=== PATIENT | male | born 1995 | race Native Hawaiian/Other Pacific Islander ===

== ENCOUNTER 2017-10-30 13:58 | Emergency (ER) | payer SELFPAY ==
[2017-10-30 14:27] VITALS: BP 122/77
--- NOTE | 2017-10-30 15:11 | Emergency Department Report ---
ED Abdominal Pain HPI - General Chief Complaint: Abdominal Pain Stated Complaint: ABD PAIN Time Seen by Provider: 10/30/17 15:09 Source: patient, family Mode of arrival: Ambulatory Limitations: No Limitations - History of Present Illness Initial Comments: This is a 22-year-old male here with his family member reports that he is having abdominal pain to the right upper quadrant and it hurts. He said the pain feels like spasm in his stomach and it is 10 out of 10 and comes and goes. Denies any back pain. Denies any urinary burning frequency or urgency. Denies any diarrhea or vomiting but reports some nausea. Patient denies eating any food that upset his stomach. He says that he went to a clinic and they did a strep test and told him that he has had strep but he was not having a sore throat and treated him with antibiotic. He said they told them not to eat any fatty food or fried foods. Patient last bowel movement was this morning and. He also reportedly told him that he was constipated and he was placed on laxative. Patient reports he has been drinking prune juice and prescription laxative that was given to him. He reports chills but denies any fever. Pain is exacerbated by touch but no alleviating factors. MD Complaint: abdominal pain Onset/Timin -: Gradual, week(s) Location: RUQ Radiation: none Migration to: no migration Severity: severe Quality: other (spasms) Consistency: intermittent Improves With: nothing Worsens With: other (palpation) Context: other (unsure) Associated Symptoms: nausea, chills. denies: vomiting, diarrhea, fever, constipation, dysuria, hematemesis, hematochezia, melena, hematuria, anorexia, syncope Treatments Prior to Arrival: other (laxative) - Related Data Home Medications Medication Instructions Recorded Confirmed Last Taken buPROPion [Wellbutrin] 75 mg PO 01/12/13 01/12/13 Unknown Previous Rx's Medication Instructions Recorded Last Taken Type Ibuprofen [Motrin] 400 mg PO TID PRN #20 tablet 01/12/13 Unknown Rx Penicillin Vk [Veetids TAB] 2 mg PO BID #40 tablet 02/03/13 Unknown Rx Ibuprofen [Motrin] 600 mg PO Q8H PRN #12 tablet 10/30/17 Unknown Rx Ondansetron [Zofran Odt] 4 mg PO Q6H PRN #20 tab.rapdis 10/30/17 Unknown Rx Allergies Allergy/AdvReac Type Severity Reaction Status Date / Time No Known Allergies Allergy Unverified 01/12/13 15:41 ED Review of Systems ROS: Stated complaint: ABD PAIN Other details as noted in HPI Constitutional: chills. denies: fever Eyes: vision change. denies: eye pain ENT: denies: ear pain, throat pain Respiratory: denies: cough, shortness of breath, wheezing Cardiovascular: denies: chest pain, palpitations Endocrine: no symptoms reported Gastrointestinal: denies: abdominal pain, nausea, diarrhea Genitourinary: denies: urgency, dysuria Musculoskeletal: denies: back pain, joint swelling, arthralgia Skin: denies: rash, lesions Neurological: denies: headache, weakness ED Past Medical Hx - Past Medical History Previous Medical History?: No - Surgical History Past Surgical History?: No - Family History Family history: no significant - Social History Smoking Status: Never Smoker Substance Use Type: None - Medications Home Medications: Home Medications Medication Instructions Recorded Confirmed Last Taken Type Ibuprofen [Motrin] 400 mg PO TID PRN #20 tablet 01/12/13 Unknown Rx buPROPion [Wellbutrin] 75 mg PO 01/12/13 01/12/13 Unknown History Penicillin Vk [Veetids TAB] 2 mg PO BID #40 tablet 02/03/13 Unknown Rx Ibuprofen [Motrin] 600 mg PO Q8H PRN #12 tablet 10/30/17 Unknown Rx Ondansetron [Zofran Odt] 4 mg PO Q6H PRN #20 tab.rapdis 10/30/17 Unknown Rx ED Physical Exam - General Limitations: No Limitations General appearance: alert, in no apparent distress - Head Head exam: Present: atraumatic, normocephalic, normal inspection - Eye Eye exam: Present: normal appearance, PERRL, EOMI Pupils: Present: normal accommodation - ENT ENT exam: Present: normal exam, normal orophraynx, mucous membranes moist - Neck Neck exam: Present: normal inspection, full ROM. Absent: tenderness, meningismus, lymphadenopathy - Respiratory Respiratory exam: Present: normal lung sounds bilaterally. Absent: respiratory distress, chest wall tenderness - Cardiovascular Cardiovascular Exam: Present: regular rate, normal rhythm, normal heart sounds. Absent: systolic murmur, diastolic murmur - GI/Abdominal GI/Abdominal exam: Present: soft, tenderness (right upper quadrant), guarding, normal bowel sounds. Absent: distended, rebound, rigid, organomegaly, mass, bruit, pulsatile mass, hernia - Extremities Exam Extremities exam: Present: normal inspection, full ROM, normal capillary refill , other (No cce. + 2 pulses in all extremities, no neurovascular compromise). Absent: tenderness, pedal edema, joint swelling, calf tenderness - Back Exam Back exam: Present: normal inspection, full ROM, other (ambulates without any difficulties). Absent: tenderness, CVA tenderness (R), CVA tenderness (L), muscle spasm, paraspinal tenderness, vertebral tenderness, rash noted - Neurological Exam Neurological exam: Present: alert, oriented X3, normal gait - Psychiatric Psychiatric exam: Present: normal affect, normal mood - Skin Skin exam: Present: warm, dry, intact, normal color. Absent: rash ED Course Vital Signs 10/30/17 10/30/17 14:23 16:19 Temperature 99.1 F Pulse Rate 62 Respiratory 16 18 Rate Blood Pressure 122/77 O2 Sat by Pulse 100 Oximetry - Reevaluation(s) Reevaluation #1: 10/30/17 16:10 Patient given Pepcid 20 mg IV, Zofran 4 mg IV and Toradol 30 mg IV and was also given IV fluid normal saline 1 L and emergency room. Awaiting labs and ultrasound. Reevaluation #2: 10/30/17 18:20 Repeat abdominal exam with no change. Patient ultrasound reflects that he has some sludge in his gallbladder without any cholecystitis or gallstones. Liver is fatty and mildly enlarged. The CBC, chemistry and lipase within normal limits. Pain is controlled and no nausea. ED Medical Decision Making - Lab Data Result diagrams: 10/30/17 15:48 10/30/17 15:48 Lab Results 10/30/17 10/30/17 10/30/17 Range/Units 15:48 15:48 17:00 WBC 8.8 (4.5-11.0) K/mm3 RBC 4.75 (3.65-5.03) M/mm3 Hgb 13.8 (11.8-15.2) gm/dl Hct 40.9 (35.5-45.6) % MCV 86 (84-94) fl MCH 29 (28-32) pg MCHC 34 (32-34) % RDW 13.7 (13.2-15.2) % Plt Count 180 (140-440) K/mm3 Lymph % (Auto) 42.7 H (13.4-35.0) % [place] % (Auto) 7.1 (0.0-7.3) % Eos % (Auto) 1.1 (0.0-4.3) % Baso % (Auto) 0.5 (0.0-1.8) % Lymph # 3.8 (1.2-5.4) K/mm3 [place] # 0.6 (0.0-0.8) K/mm3 Eos # 0.1 (0.0-0.4) K/mm3 Baso # 0.0 (0.0-0.1) K/mm3 Seg Neutrophils % 48.6 (40.0-70.0) % Seg Neutrophils # 4.3 (1.8-7.7) K/mm3 Sodium 141 (137-145) mmol/L Potassium 4.1 (3.6-5.0) mmol/L Chloride 103.2 (98-107) mmol/L Carbon Dioxide 27 (22-30) mmol/L Anion Gap 15 mmol/L BUN 12 (9-20) mg/dL Creatinine 0.7 L (0.8-1.5) mg/dL Estimated GFR > 60 ml/min BUN/Creatinine Ratio 17 % Glucose 83 (75-100) mg/dL Calcium 8.7 (8.4-10.2) mg/dL Total Bilirubin 0.50 (0.1-1.2) mg/dL AST 15 (5-40) units/L ALT 26 (7-56) units/L Alkaline Phosphatase 99 (35-129) units/L Total Protein 6.7 (6.3-8.2) g/dL Albumin 4.2 (3.9-5) g/dL Albumin/Globulin Ratio 1.7 % Lipase 30 (13-60) units/L Urine Color Yellow (Yellow) Urine Turbidity Clear (Clear) Urine pH 5.0 (5.0-7.0) Ur Specific [place] 1.017 (1.003-1.030) Urine Protein <15 mg/dl (Negative) mg/dL Urine Glucose (UA) Neg (Negative) mg/dL Urine Ketones Neg (Negative) mg/dL Urine Blood Neg (Negative) Urine Nitrite Neg (Negative) Urine Bilirubin Neg (Negative) Urine Urobilinogen < 2.0 (<2.0) mg/dL Ur Leukocyte Esterase Neg (Negative) Urine WBC (Auto) < 1.0 (0.0-6.0) /HPF Urine RBC (Auto) 1.0 (0.0-6.0) /HPF Urine Mucus Few /HPF - Radiology Data Radiology results: report reviewed Ultrasound right upper quadrant abdomen dictated by radiologist and reported myself. Please see detailed report below. Patient: GIACOMO MUNSON MR#: [id number] : 1995 Acct:[id number] Age/Sex: 22 / M ADM Date: 10/30/17 Loc: ED Attending Dr: Ordering Physician: LIV BRENNER Date of Service: 10/30/17 Procedure(s): US abdomen limited Accession Number(s): [id number] cc: LIV BRENNER FINAL REPORT EXAM: US ABDOMEN LIMITED HISTORY: RUQ abdomminal pain with nausea TECHNIQUE: Longitudinal and transverse grayscale and color sonographic images were performed Comparison: None FINDINGS: The pancreas is obscured by bowel gas. The liver is diffusely echogenic with heterogeneous echotexture. It is mildly enlarged. There is pericholecystic hypoechoic ill-defined region most compatible with focal sparing adjacent to the gallbladder fossa. The gallbladder is moderately distended. A tiny amount of dependent sludge may be present. Gallbladder wall measures 2.4 millimeters. Common duct measures 3.4 millimeters. No pericholecystic free fluid. Right kidney measures 11.5 centimeters. Sonographically normal. IMPRESSION: Fatty infiltrated liver. Pericholecystic sparing. No biliary ductal dilatation or gallbladder wall thickening. No gallstones. A tiny amount of dependent sludge may be present. Transcribed By: VIOLET Dictated By: JESSE MORGAN Electronically Authenticated By: JESSE MORGAN Signed Date/Time: 10/30/171644 DD/ 44 TD/TT: 10/30/171644 - Medical Decision Making This 22-year-old male here for right upper quadrant abdominal spasm that comes and goes. He does not know what causes it but he said he went to clinic last week and they told him that he is constipated and put him laxative and he said his last BM was this morning. He said he still having spasm and they also did a strep test on amp and put him on antibiotic. He said the doctor told him that he needs to stay away from fatty food and greasy food but they did not do any testing on his abdomen. Patient was seen and examined by myself. Abdominal exam were right upper quadrant tenderness or guarding, no rebound. No mass, bruit or hernia noted. All other exams are normal. He has normal bowel sounds. Patient had CBC, CMP, lipase and urinalysis which were all normal. He had right upper quadrant abdominal ultrasound, limited which shows Fatty infiltrated liver. Pericholecystic sparing. No biliary ductal dilatation or gallbladder wall thickening. No gallstones. A tiny amount of dependent sludge may be present. Lab results and ultrasound results explained to patient and his family in detail and they voiced understanding. I explained diagnosis and treatment plan and need to follow up with hand sample maker and he voices understanding. Patient said he does not have a primary care physician and he would like to be referred to one. Patient was given pain medication and nausea medication with antacid and emergency room which relieved his abdominal discomfort. Assessment/plan 1: Right upper quadrant abdominal pain-ultrasound of the right upper quadrant shows fatty infiltrated liver, pericolicecystic sparing. No biliary ductal dilatation or gallbladder wall thickening. No gallstones. He has a tiny amount of dependent sludge present. CBC, urinalysis and CMP with lipase are all normal. 2: nausea alone -treated with Zofran 4 mg IV and Pepcid 20 mg IV will rule out for nausea. He was given 1 L IV fluid normal saline and able to tolerate oral liquids in the emergency room. Educated on diet to prevent biliary colic, medication, diagnosis and need to follow-up with hand sample maker. Patient discharged home in stable condition and his vital signs stable with a febrile and he has no pain or nausea at present. Discharge home to follow up with primary care physician and hand sample maker which I will refer him to both. He voiced understanding. Patient discharged home with prescription for Zofran and Motrin. - Differential Diagnosis pancreatitis, gallbladder disease, liver disease, abdominal pain, unspecifi Critical care attestation.: If time is entered above; I have spent that time in minutes in the direct care of this critically ill patient, excluding procedure time. ED Disposition Clinical Impression: Nausea alone, Abdominal pain, RUQ (right upper quadrant), Biliary colic, Fatty liver Disposition: DC-01 TO HOME OR SELFCARE Is pt being admited?: No Does the pt Need Aspirin: No Condition: Stable Instructions: Acute Nausea and Vomiting (ED), Abdominal Pain (ED), Biliary Colic (ED), Non-Alcoholic Fatty Liver Disease (ED) Additional Instructions: follow-up with primary care physician and hand sample maker as instructed think he appreciated that. Follow-up in 2-3 days Zofran as needed for nausea Motrin for pain avoid fatty and greasy food If his symptoms worsen, return to emergency room Referrals: TOREY SHARPE MD [Staff Physician] - 11/01/17 [facility] [Provider Group] - 3-5 Days [facility] [Outside] - 11/01/17 Forms: Work/School Release Form(ED)
[2017-10-30] MEDS ORDERED: ZOFRAN IV ONE (15:22)
[2017-10-30] MEDS ORDERED: TORADOL IV ONE (15:22)
[2017-10-30] MEDS ORDERED: NACL 0.9% 1000 ML 1,000 ML IV ONE (15:22)
[2017-10-30] MEDS ORDERED: PEPCID IV ONE (15:23)
[2017-10-30 16:03] LABS: Basophils % (Auto) 0.5 % (0.0-1.8); Eosinophils # (Auto) 0.1 K/mm3 (0.0-0.4); Eosinophils % (Auto) 1.1 % (0.0-4.3); Hematocrit 40.9 % (35.5-45.6); Hemoglobin 13.8 gm/dl (11.8-15.2); Lymphocytes # (Auto) 3.8 K/mm3 (1.2-5.4); Lymphocytes % (Auto) 42.7 % (13.4-35.0); Mean Corpuscular HGB Conc 34 % (32-34); Mean Corpuscular Hemoglobin 29 pg (28-32); Mean Corpuscular Volume 86 fl (84-94); Monocytes # (Auto) 0.6 K/mm3 (0.0-0.8); Monocytes % (Auto) 7.1 % (0.0-7.3); Platelet Count 180 K/mm3 (140-440); Red Blood Count 4.75 M/mm3 (3.65-5.03); Red Cell Distribution Width 13.7 % (13.2-15.2)
[2017-10-30 16:18] LABS: Alanine Aminotransferase 26 units/L (7-56); Albumin 4.2 g/dL (3.9-5); BUN/Creatinine Ratio 17; Blood Urea Nitrogen 12 mg/dL (9-20); Calcium 8.7 mg/dL (8.4-10.2); Hemolysis Index 7; Lipase 30 units/L (13-60)
--- NOTE | 2017-10-30 16:52 | Ultrasound Report ---
FINAL REPORT EXAM: US ABDOMEN LIMITED HISTORY: RUQ abdomminal pain with nausea TECHNIQUE: Longitudinal and transverse grayscale and color sonographic images were performed Comparison: None FINDINGS: The pancreas is obscured by bowel gas. The liver is diffusely echogenic with heterogeneous echotexture. It is mildly enlarged. There is pericholecystic hypoechoic ill-defined region most compatible with focal sparing adjacent to the gallbladder fossa. The gallbladder is moderately distended. A tiny amount of dependent sludge may be present. Gallbladder wall measures 2.4 millimeters. Common duct measures 3.4 millimeters. No pericholecystic free fluid. Right kidney measures 11.5 centimeters. Sonographically normal. IMPRESSION: Fatty infiltrated liver. Pericholecystic sparing. No biliary ductal dilatation or gallbladder wall thickening. No gallstones. A tiny amount of dependent sludge may be present.
[2017-10-30 17:22] LABS: Bilirubin,Urine NEG (Negative); Blood,Urine NEG (Negative); Color,Urine Yellow (Yellow); Mucus,Urine FEW /HPF; Protein,Urine <15 mg/dL mg/dL (Negative); Urobilinogen,Urine < 2.0 mg/dL (<2.0); WBC,Urine < 1.0 /HPF (0.0-6.0)
== END 2017-10-30 18:57 | disposition home or self-care (01) ==
LOC: ED 13:58
DX: K76.0 Fatty (change of) liver, not elsewhere classified (principal); K80.50 Calculus of bile duct without cholangitis or cholecystitis without obstruction
CPT/HCPCS: 36415; 76705; 80053; 81001; 83690; 85025; 96374; 96375; 99284; J1885; J2405; J7030

== ENCOUNTER 2017-11-17 13:36 | Emergency (ER) | payer SELFPAY ==
[2017-11-17 13:51] VITALS: BP 113/68
--- NOTE | 2017-11-17 15:43 | Emergency Department Report ---
ED ENT HPI - General Chief complaint: Sore Throat Stated complaint: TROUBLE SWALLOWING/BREATHING Time Seen by Provider: 11/17/17 15:33 Source: patient Mode of arrival: Ambulatory Limitations: No Limitations - History of Present Illness Initial comments: Patient is a 22-year-old male who states for the past 3 weeks she's had some difficulty swallowing. Patient states especially at night he feels as though there is something in the back of his throat such as mucus and he feels like he is choking. Patient also says he has trouble when he swallows solid foods and has washed it down with water. Patient denies any fevers chills sore throat nausea vomiting and diarrhea time - Related Data Home Medications Medication Instructions Recorded Confirmed Last Taken buPROPion [Wellbutrin] 75 mg PO 01/12/13 01/12/13 Unknown Previous Rx's Medication Instructions Recorded Last Taken Type Ibuprofen [Motrin] 400 mg PO TID PRN #20 tablet 01/12/13 Unknown Rx Penicillin Vk [Veetids TAB] 2 mg PO BID #40 tablet 02/03/13 Unknown Rx Ibuprofen [Motrin] 600 mg PO Q8H PRN #12 tablet 10/30/17 Unknown Rx Ondansetron [Zofran Odt] 4 mg PO Q6H PRN #20 tab.rapdis 10/30/17 Unknown Rx prednisoLONE 60 ml PO QDAY 5 Days ml 11/17/17 Unknown Rx Allergies Allergy/AdvReac Type Severity Reaction Status Date / Time No Known Allergies Allergy Unverified 01/12/13 15:41 ED Dental HPI - General Chief complaint: Sore Throat Stated complaint: TROUBLE SWALLOWING/BREATHING Time Seen by Provider: 11/17/17 15:33 Source: patient Mode of arrival: Ambulatory Limitations: No Limitations - Related Data Home Medications Medication Instructions Recorded Confirmed Last Taken buPROPion [Wellbutrin] 75 mg PO 01/12/13 01/12/13 Unknown Previous Rx's Medication Instructions Recorded Last Taken Type Ibuprofen [Motrin] 400 mg PO TID PRN #20 tablet 01/12/13 Unknown Rx Penicillin Vk [Veetids TAB] 2 mg PO BID #40 tablet 02/03/13 Unknown Rx Ibuprofen [Motrin] 600 mg PO Q8H PRN #12 tablet 10/30/17 Unknown Rx Ondansetron [Zofran Odt] 4 mg PO Q6H PRN #20 tab.rapdis 10/30/17 Unknown Rx prednisoLONE 60 ml PO QDAY 5 Days ml 11/17/17 Unknown Rx Allergies Allergy/AdvReac Type Severity Reaction Status Date / Time No Known Allergies Allergy Unverified 01/12/13 15:41 ED Review of Systems ROS: Stated complaint: TROUBLE SWALLOWING/BREATHING Other details as noted in HPI Comment: All other systems reviewed and negative ED Past Medical Hx - Past Medical History Previous Medical History?: No - Social History Smoking Status: Former Smoker - Medications Home Medications: Home Medications Medication Instructions Recorded Confirmed Last Taken Type Ibuprofen [Motrin] 400 mg PO TID PRN #20 tablet 01/12/13 Unknown Rx buPROPion [Wellbutrin] 75 mg PO 01/12/13 01/12/13 Unknown History Penicillin Vk [Veetids TAB] 2 mg PO BID #40 tablet 02/03/13 Unknown Rx Ibuprofen [Motrin] 600 mg PO Q8H PRN #12 tablet 10/30/17 Unknown Rx Ondansetron [Zofran Odt] 4 mg PO Q6H PRN #20 tab.rapdis 10/30/17 Unknown Rx prednisoLONE 60 ml PO QDAY 5 Days ml 11/17/17 Unknown Rx ED Physical Exam - General Limitations: No Limitations General appearance: alert, in no apparent distress - Head Head exam: Present: atraumatic, normocephalic - Eye Eye exam: Present: normal appearance - ENT ENT exam: Present: mucous membranes moist, other (she has some mild irritation and hyperemia to the posterior pharynx. Tonsils are within normal limits. Consistent with postnasal drip) - Neck Neck exam: Present: normal inspection - Respiratory Respiratory exam: Present: normal lung sounds bilaterally. Absent: respiratory distress - Cardiovascular Cardiovascular Exam: Present: regular rate, normal rhythm. Absent: systolic murmur, diastolic murmur, rubs, gallop - GI/Abdominal GI/Abdominal exam: Present: soft, normal bowel sounds - Rectal Rectal exam: Present: deferred - Extremities Exam Extremities exam: Present: normal inspection - Back Exam Back exam: Present: normal inspection - Neurological Exam Neurological exam: Present: alert, oriented X3 - Psychiatric Psychiatric exam: Present: normal affect, normal mood - Skin Skin exam: Present: warm, dry, intact, normal color. Absent: rash ED Course Vital Signs 11/17/17 13:46 Temperature 98.5 F Pulse Rate 19 L Respiratory 16 Rate Blood Pressure 113/68 O2 Sat by Pulse 100 Oximetry ED Medical Decision Making - Medical Decision Making Patient started on Prelone and will be discharged home with follow-up with ear nose and throat Critical care attestation.: If time is entered above; I have spent that time in minutes in the direct care of this critically ill patient, excluding procedure time. ED Disposition Clinical Impression: Post-nasal drainage Disposition: DC- TO HOME OR SELFCARE Is pt being admited?: No Does the pt Need Aspirin: No Condition: Stable Prescriptions: prednisoLONE 60 ml PO QDAY 5 Days ml Referrals: CHRISTELLE ALSTON MD [Referring] - 3-5 Days Time of Disposition: 15:43
== END 2017-11-17 16:05 | disposition home or self-care (01) ==
LOC: ED 13:36
DX: R09.82 Postnasal drip (principal); Z87.891 Personal history of nicotine dependence
CPT/HCPCS: 99282

== ENCOUNTER 2018-05-26 13:09 | Outpatient (CLI) | payer OTHER ==
--- NOTE | 2018-05-26 15:21 | Fluoroscopy Report ---
BARIUM SWALLOW: History: Dysphagia. 22 fluoroscopic images were saved during this exam. The patient swallows barium without difficulty demonstrating normal coordination. The cervical and thoracic portions of the esophagus demonstrate normal contours and there is normal peristalsis. There is no evidence of a hiatus hernia and no reflux is demonstrated. The patient was able to ingest and pass a barium tablet without difficulty. IMPRESSION: Normal study.
== END 2018-05-26 13:10 | disposition home or self-care (01) ==
LOC: FLUORO 13:09
PROVIDERS: ATTEND Otolaryngology
DX: R13.10 Dysphagia, unspecified (principal); Z87.891 Personal history of nicotine dependence
CPT/HCPCS: 74220